=== PATIENT | male | born 1965 | race Caucasian/White ===

== ENCOUNTER 2017-10-10 12:52 | Emergency (ER) | payer BC ==
[2017-10-10 14:57] VITALS: BP 147/105
--- NOTE | 2017-10-10 15:56 | RAD ---
INDICATION: LEFT wrist pain post fall. Medial pain. COMPARISON: No relevant prior exams available on the [facility] PACS for comparison. TECHNIQUE: AP, lateral, and oblique views LEFT wrist. REPORT: Subtle osseous irregularity along the dorsum of the wrist is concerning for a potential nondisplaced triquetral avulsion fracture. Overlying soft tissue swelling. There is also soft tissue swelling at the volar aspect. The remaining carpal bones are unremarkable. No significant arthropathic change evident. IMPRESSION: While not definitive there is suggestion of a potential nondisplaced osseous avulsion fracture from the dorsum of the triquetrum. Orthopedic follow-up suggested.
--- NOTE | 2017-10-10 16:29 | UC ---
Hand/Wrist HPI - HPI Summary HPI Summary: 52 yo male injured left wrist a couple of days ago pain worsens he is right handed - History Of Current Complaint Chief Complaint: UCUpperExtremity Stated Complaint: WRIST INJURY Time Seen by Provider: 10/10/17 16:21 Hx Obtained From: Patient Onset/Duration: Sudden Onset Severity Initially: Moderate Severity Currently: Moderate Pain Intensity: 6 Pain Scale Used: 0-10 Numeric Character Of Pain: Aching, Throbbing Aggravating Factor(s): Movement Alleviating Factor(s): Rest Associated Signs And Symptoms: Positive: Swelling - Allergies/Home Medications Allergies/Adverse Reactions: Allergies Allergy/AdvReac Type Severity Reaction Status Date / Time MS Alcohol [Alcohol] Allergy THROAT Verified 10/10/17 14:59 CONSTRICTION PMH/Surg Hx/FS Hx/Imm Hx Previously Healthy: Yes - Surgical History Surgical History: Yes Surgery Procedure, Year, and Place: APPENDECTOMY, 1982, [place] [facility] X2, 1996, 1998, [place],. BX FROM [place], [facility] [place], 2003 - Family History Known Family History: Positive: Hypertension - Social History Alcohol Use: Daily Alcohol Amount: 3 DAILY Substance Use Type: None Smoking Status (MU): Never Smoked Tobacco Have You Smoked in the Last Year: No Review of Systems Constitutional: Negative Skin: Negative Eyes: Negative ENT: Negative Respiratory: Negative Cardiovascular: Negative Gastrointestinal: Negative Genitourinary: Negative Motor: Negative Neurovascular: Negative Musculoskeletal: Arthralgia Neurological: Negative Psychological: Negative Is Patient Immunocompromised?: No All Other Systems Reviewed And Are Negative: Yes Physical Exam Triage Information Reviewed: Yes Appearance: Well-Appearing, No Pain Distress, Well-Nourished Vital Signs: Initial Vital Signs Temp 98.7 F 10/10/17 14:52 Pulse 58 10/10/17 14:52 Resp 15 10/10/17 14:52 BP 147/105 10/10/17 14:52 Pulse Ox 97 10/10/17 14:52 Vital Signs Reviewed: Yes Eyes: Positive: Conjunctiva Clear ENT: Positive: Hearing grossly normal. Negative: Nasal congestion, Nasal drainage, Trismus, Muffled voice, Hoarse voice Neck: Positive: Supple Respiratory: Positive: Lungs clear, Normal breath sounds, No respiratory distress, No accessory muscle use Cardiovascular: Positive: RRR, No Murmur Neurological: Positive: Alert Psychological Exam: Normal Skin Exam: Normal Diagnostics - Radiology No standard instances Xray Interpretation: Positive (See Comments) - While not definitive there is suggestion of a potential nondisplaced osseous avulsion fracture from the dorsum of the triquetrum Hand/Wrist Course/Dx - Differential Dx/Diagnosis Provider Diagnoses: possible avulsion fracture of left triquetrum (nondisplaced) Discharge - Discharge Plan Condition: Stable Disposition: HOME Patient Education Materials: Avulsion Fracture (ED) Referrals: Walter Sin MD [Medical Doctor] - As Soon As Possible Additional Instructions: rest elevate splint ibuprofen suspect non displaced alvusion fracture of triquetrum
== END 2017-10-10 16:43 | disposition home or self-care (01) ==
LOC: UCEAST 12:52
DX: S69.92XA Unspecified injury of left wrist, hand and finger(s), initial encounter (principal); X58.XXXA Exposure to other specified factors, initial encounter; Y93.9 Activity, unspecified; Y92.9 Unspecified place or not applicable
CPT/HCPCS: 99212; G0463

== ENCOUNTER 2023-08-18 12:39 | Observation (INO) ==
[2023-08-18] MEDS ORDERED: NS 0.9% 1000 ml BAG 1,000 ML IV ONE (13:11)
[2023-08-18] MEDS ORDERED: LORazepam 2 mg VIAL 1 ml IV PUSH ONE (13:12)
[2023-08-18] MEDS ORDERED: Lorazepam PYXIS KEY PRN (13:12)
[2023-08-18 13:23] LABS: INR 1.05 (0.83-1.13)
[2023-08-18 13:25] LABS: ABS Basophils 0.1 10^3/uL (0.0-0.1); ABS Eosinophils 0.1 10^3/uL (0.0-0.5); ABS Lymphocytes 1.5 10^3/uL (1.0-4.8); ABS Monocytes 0.5 10^3/uL (0.0-1.1); ABS Neutrophils 3.4 10^3/uL (1.5-7.6); Eosinophil % 1.8 %; Hematocrit 45.1 % (38-53); Hemoglobin 15.3 g/dL (13.2-16.3); Mean Corpuscular Hemoglobin 30.9 pg (27-33); Mean Corpuscular Hgb Conc 33.9 g/dL (31-36); Mean Corpuscular Volume 91.1 fL (80-97); Mean Platelet Volume 8.7 fL (7.5-11.2); Platelet Count 250 10^3/uL (150-450); Red Blood Count 4.95 10^6/uL (4.06-5.63); White Blood Count 5.6 10^3/uL (3.6-10.2)
[2023-08-18 13:47] LABS: Albumin 4.4 g/dL (3.2-5.2); Albumin/Globulin Ratio 1.6 (1-3); C Reactive Protein 5.62 mg/L (<8.01); Calcium 8.9 mg/dL (8.6-10.3); Globulin 2.7 g/dL (2-4); Phosphorus 3.2 mg/dL (2.5-5.0); Potassium 3.8 mmol/L (3.5-5.0); Total Bilirubin 0.6 mg/dL (0.2-1.0); Total Protein 7.1 g/dL (6.4-8.9); eGFR CKD-EPI 87.2 (>60)
[2023-08-18 14:58] LABS: High Sensitivity Troponin 1 Hr 280 pg/mL (<20)
[2023-08-18] MEDS ORDERED: Heparin DRIP 25,000 UNITS BAG 25,000 UNITS/250 ML BAG IV SCH (15:30)
[2023-08-18 16:00] LABS: ABS Basophils 0.1 10^3/uL (0.0-0.1); ABS Eosinophils 0.1 10^3/uL (0.0-0.5); ABS Lymphocytes 1.6 10^3/uL (1.0-4.8); ABS Monocytes 0.4 10^3/uL (0.0-1.1); ABS Neutrophils 6.4 10^3/uL (1.5-7.6); Eosinophil % 0.7 %; Hematocrit 43.3 % (38-53); Hemoglobin 14.9 g/dL (13.2-16.3); Lymphocyte % 18.6 %; Mean Corpuscular Hemoglobin 31.1 pg (27-33); Mean Corpuscular Hgb Conc 34.4 g/dL (31-36); Mean Corpuscular Volume 90.3 fL (80-97); Mean Platelet Volume 8.5 fL (7.5-11.2); Platelet Count 255 10^3/uL (150-450); Red Cell Distribution Width 15.2 % (12-17); White Blood Count 8.5 10^3/uL (3.6-10.2)
[2023-08-18] MEDS: Heparin 5000 UNITS/ML 1 mL VIAL IV SCH ×2 (16:14→23:14)
[2023-08-18] MEDS ORDERED: Thiamine 100 MG/ML 2 ml VIAL (200 mg) IM ONE (16:16)
[2023-08-18] MEDS: Multivitamins/Minerals TAB PO SCH (16:59)
[2023-08-18] MEDS ORDERED: LORazepam 2 mg VIAL 1 ml IV PUSH SCH (17:00)
[2023-08-18 17:07] LABS: Creatinine, Serum 0.96 mg/dL (0.67-1.17); eGFR CKD-EPI 91.6 (>60)
[2023-08-18 18:24] LABS: HDL Cholesterol 50.6 mg/dL
[2023-08-18 18:46] LABS: High Sensitivity Troponin 3 Hr 1123 pg/mL (<20)
[2023-08-18] MEDS ORDERED: Potassium Chlor 20 meq TAB.ER PO ONE (18:50)
[2023-08-18 20:55] LABS: Urine Appearance Clear; Urine Bilirubin Negative (Negative); Urine Blood Negative (Negative); Urine Color Yellow; Urine Glucose Negative (Negative); Urine Ketones Negative (Negative); Urine Nitrite Negative (Negative); Urine Protein Negative (Negative); Urine Specific Gravity 1.006 (1.002-1.030); Urine Urobilinogen Negative (Negative)
[2023-08-19 06:11] LABS: Calcium 8.8 mg/dL (8.6-10.3); Creatinine, Serum 0.87 mg/dL (0.67-1.17)
[2023-08-19] MEDS: Multivitamins/Minerals TAB PO SCH (08:06)
[2023-08-19] MEDS ORDERED: Heparin 2 UNITS/ML 1000 mls 2,000 ML IV ONE (12:40)
[2023-08-19] MEDS ORDERED: nitroGLYCERIN DRIP 25,000 MCG/250 ML BTL ONE (12:40)
[2023-08-19] MEDS ORDERED: Lidocaine 1% MPF 5 ML VIAL ONE (12:40)
[2023-08-19] MEDS ORDERED: niCARdipine 0.1MG/ML IVPREMIX 20 MG/200 ML BAG IV ONE (12:40)
[2023-08-19] MEDS ORDERED: Midazolam 5 mg/5 ml VIAL 1 mg/ml 5 ml VIAL (5 mg) ONE (13:15)
[2023-08-19] MEDS ORDERED: fentaNYL 100 mcg/2 ml 50 MCG/ML VIAL IV SLOW PU ONE (13:16)
[2023-08-19] MEDS ORDERED: Naloxone 0.4 mg VIAL 0.4 mg/ml 1 ml VIAL IV PUSH PRN (13:16)
[2023-08-19] MEDS ORDERED: Iohexol 350 (CONTRAST) 100 ML PAK IV ONE (13:16)
[2023-08-19] MEDS ORDERED: fentaNYL 100 mcg/2 ml 50 MCG/ML VIAL ONE (13:16)
[2023-08-19] MEDS ORDERED: Flumazenil 0.5 mg/5 ml 0.1 MG/ML 5 ml VIAL IV PRN (13:16)
[2023-08-19] MEDS ORDERED: Heparin 1,000 UNIT/ML 10 ml (10,000 UNITS) CATHLAB/DIALYSIS ONE (13:16)
[2023-08-19] MEDS ORDERED: Midazolam 10 mg/10 ml VIAL 1 mg/ml 10 ml VIAL (10 mg) IV SLOW PU ONE (13:16)
[2023-08-19] MEDS ORDERED: Enoxaparin 100 MG/ML SYR SUBCUT SCH (20:00)
[2023-08-19 20:07] VITALS: BP 162/84
== END 2023-08-19 21:05 | disposition short-term general hospital (02) ==
LOC: EDHOLD 12:39 → ED 12:39 → SUATTDRO 16:10 → MEDTELE 20:50
PROVIDERS: ADMIT Internal Medicine; ATTEND Hospitalist

== ENCOUNTER 2024-02-20 10:34 | Observation (INO) ==
[2024-02-20 10:58] LABS: ABS Eosinophils 0.1 10^3/uL (0.0-0.5); ABS Lymphocytes 1.2 10^3/uL (1.0-4.8); ABS Monocytes 0.5 10^3/uL (0.0-1.1); ABS Neutrophils 3.6 10^3/uL (1.5-7.6); Eosinophil % 2.4 %; Hematocrit 41.8 % (38-53); Hemoglobin 14.5 g/dL (13.2-16.3); Lymphocyte % 21.4 %; Mean Corpuscular Hemoglobin 32.2 pg (27-33); Mean Corpuscular Hgb Conc 34.7 g/dL (31-36); Mean Corpuscular Volume 92.8 fL (80-97); Mean Platelet Volume 8.7 fL (7.5-11.2); Platelet Count 211 10^3/uL (150-450); Red Cell Distribution Width 14.7 % (12-17); White Blood Count 5.4 10^3/uL (3.6-10.2)
[2024-02-20 11:48] LABS: Albumin 4.1 g/dL (3.2-5.2); Albumin/Globulin Ratio 1.6 (1-3); Creatinine, Serum 1.16 mg/dL (0.67-1.17); Globulin 2.5 g/dL (2-4); Potassium 4.8 mmol/L (3.5-5.0); Total Bilirubin 0.8 mg/dL (0.2-1.0); Total Protein 6.6 g/dL (6.4-8.9)
[2024-02-20 12:03] LABS: INR 1.05 (0.83-1.13)
[2024-02-20] MEDS ORDERED: Aspirin EC 325 mg TAB.EC PO ONE (12:15)
[2024-02-20 12:24] LABS: High Sensitivity Troponin 1 Hr 5 pg/mL (<20)
[2024-02-20] MEDS: Atropine 1 MG/ML INJ 1 ML VIAL IV PUSH ONE (18:05)
[2024-02-21 07:50] LABS: ABS Eosinophils 0.2 10^3/uL (0.0-0.5); ABS Lymphocytes 1.7 10^3/uL (1.0-4.8); ABS Monocytes 0.5 10^3/uL (0.0-1.1); ABS Neutrophils 3.6 10^3/uL (1.5-7.6); ABS Nucleated RBC 0.02 10^3/ul; Eosinophil % 2.7 %; Hematocrit 41.9 % (38-53); Hemoglobin 14.5 g/dL (13.2-16.3); Lymphocyte % 28.1 %; Mean Corpuscular Hemoglobin 31.9 pg (27-33); Mean Corpuscular Hgb Conc 34.7 g/dL (31-36); Mean Corpuscular Volume 92.2 fL (80-97); Mean Platelet Volume 9.3 fL (7.5-11.2); Nucleated Red Blood Cells % 0.4 %/100WBC (0.0-0.8); Platelet Count 205 10^3/uL (150-450); Red Blood Count 4.55 10^6/uL (4.06-5.63); Red Cell Distribution Width 14.6 % (12-17); White Blood Count 6.1 10^3/uL (3.6-10.2)
[2024-02-21 08:06] LABS: Calcium 8.8 mg/dL (8.6-10.3); Creatinine, Serum 1.05 mg/dL (0.67-1.17); Magnesium 2.1 mg/dL (1.9-2.7); Potassium 4.3 mmol/L (3.5-5.0); eGFR CKD-EPI 82.3 (>60)
[2024-02-21] MEDS ORDERED: Aminophylline 25 MG/ML VIAL ONE (09:48)
[2024-02-21] MEDS ORDERED: Regadenoson 0.4 MG/5 ML SYRINGE ONE (09:48)
[2024-02-21 14:07] VITALS: BP 128/85
[2024-02-23 13:22] LABS: Anaplasma phagocytophilum Negative (Negative); B. miyamotoi PCR, B Negative (Negative); Babesia divergens/MO-1 Negative (Negative); Babesia ducani Negative (Negative); Ehrlichia chaffeensis Negative (Negative); Ehrlichia ewingii/canis Negative (Negative); Ehrlichia muris eauclairensis Negative (Negative)
== END 2024-02-21 15:32 | disposition home or self-care (01) ==
LOC: EDHOLD 10:34 → ED 10:34 → MEDTELE 19:20
PROVIDERS: ADMIT Internal Medicine; ATTEND Internal Medicine